=== PATIENT | male | born 1945 | race Hispanic/Latino ===

== ENCOUNTER 2023-06-08 23:37 | Emergency (ER) | payer BC, MEDICARE, OTHER ==
[~2023-06-08] VITALS: Ht 172.7 cm; Wt 93.0 kg
[~2023-06-08 23:37] MED LIST: ASPI-556 PO; ATOR20TA65 PO; GLYB-173 PO; HYDR25TA PO; INSU100V12 SQ; LISI5TAB21 PO
[2023-06-09] MEDS ORDERED: ACETAMINOPHEN 325 MG TAB PO ONE
[2023-06-09] MEDS ORDERED: 0.9%NACL 1000ML 2,052 ML IV ONE
[2023-06-09 00:19] LABS: BASOPHILS % (AUTO) 0.3 % (0.0-5.0); EOSINOPHILS % (AUTO) 0.1 % (0.0-8.0); HEMATOCRIT 38.2 % (42-54); LYMPHOCYTES % (AUTO) 7.7 % (21.0-51.0); MEAN CORPUSCULAR HEMOGLOBIN 31.7 pg (27.0-33.0); MEAN CORPUSCULAR HGB CONC 34.8 g/dL (32.0-36.0); MEAN CORPUSCULAR VOLUME 91.2 fL (79-99); MONOCYTES % (AUTO) 10.2 % (3.0-13.0); NEUTROPHILS % (AUTO) 81.2 % (40.0-77.0); PLATELET COUNT (AUTO) 169 K/uL (130-400); RED BLOOD CELL COUNT(AUTO) 4.19 MIL/uL (4.50-6.20); RED CELL DISTRIBUTION WIDTH 12.4 % (11.0-15.5); WHITE BLOOD COUNT (AUTO) 8.9 K/uL (4.8-10.8)
[2023-06-09 00:35] LABS: POTASSIUM 3.5 mmol/L (3.5-5.1)
[2023-06-09 00:36] LABS: INR 1.06 (0.85-1.15); PROTHROMBIN TIME 12.2 SEC (9.6-11.6)
[2023-06-09 00:37] LABS: PARTIAL THROMBOPLASTIN TIME 23.1 SEC (26.3-35.5)
[2023-06-09 00:40] LABS: ALBUMIN 2.8 g/dL (3.5-5.0); TOTAL PROTEIN, SERUM 5.8 g/dL (6.0-8.3)
[2023-06-09 00:53] LABS: APPEARANCE,URINE CLEAR (CLEAR); BILIRUBIN,URINE NEGATIVE (NEGATIVE); COLOR,URINE LIGHT-YELLOW (YELLOW); GLUCOSE, URINE (UA) 150 mg/dL (NEGATIVE); KETONES,URINE NEGATIVE (NEGATIVE); LEUKOCYTE ESTERASE ,URINE NEGATIVE Leu/uL (NEGATIVE); NITRATE,URINE NEGATIVE (NEGATIVE); PROTEIN,URINE NEGATIVE (NEGATIVE); UROBILINOGEN,URINE 0.2 mg/dL (0.2-1.0)
[2023-06-09 00:55] LABS: MUCUS,URINE RARE LPF (None Seen); WBC,URINE 0-1 /HPF (0-1)
[2023-06-09] MEDS ORDERED: KETOROLAC 30MG VIAL (30MG/ML) IVP ONE (01:00)
[2023-06-09] MEDS ORDERED: FAMOTIDINE 20MG VIAL IV ONE (01:00)
[2023-06-09] MEDS ORDERED: DEXAMETHASONE 4 MG TAB PO SCH (01:00)
[2023-06-09 01:47] VITALS: BP 118/60
[2023-06-09] MEDS ORDERED: FAMO-136 PO (02:01)
[2023-06-09] MEDS ORDERED: ALBUHFA IH (02:01)
[2023-06-09] MEDS ORDERED: BENZ-39 PO (02:01)
== END 2023-06-09 02:46 | disposition home or self-care (01) ==
LOC: EDH 23:37
DX: U07.1 COVID-19 (principal); E11.9 Type 2 diabetes mellitus without complications; I10 Essential (primary) hypertension; F32.A Depression, unspecified; Z79.4 Long term (current) use of insulin; Z79.84 Long term (current) use of oral hypoglycemic drugs
CPT/HCPCS: 99285; 96374; 71045; 87635; 96375; 84484; 80053; 85025; 85610; 85730; 87040 ×2; 87804 ×2; 83605; 81001; 36415; 93005; C9803; J3490; J1885; J8540